=== PATIENT | female | born 1995 | race Caucasian/White ===

== ENCOUNTER 2017-09-21 10:51 | Emergency (ER) | payer OTHER, SELFPAY | END 2017-09-21 12:10 | disposition home or self-care (01) | LOC: BURERS 10:51 | DX: O99.512 Diseases of the respiratory system complicating pregnancy, second trimester (principal); J06.9 Acute upper respiratory infection, unspecified; O99.332 Smoking (tobacco) complicating pregnancy, second trimester; Z3A.26 26 weeks gestation of pregnancy | CPT/HCPCS: 87804; 99283 ==

== ENCOUNTER 2019-01-09 10:41 | Emergency (ER) | payer OTHER ==
[2019-01-09] MEDS ORDERED: Fluorescein Opthalmic Strip ONE (10:58)
== END 2019-01-09 11:29 | disposition home or self-care (01) ==
LOC: BURERS 10:41
DX: O99.89 Other specified diseases and conditions complicating pregnancy, childbirth and the puerperium (principal); H10.9 Unspecified conjunctivitis; Z87.891 Personal history of nicotine dependence; Z3A.20 20 weeks gestation of pregnancy
CPT/HCPCS: 99283

== ENCOUNTER 2023-06-15 07:16 | Emergency (ER) | payer OTHER ==
[2023-06-15 07:37] LABS: Bilirubin Negative (Negative); Blood, Urine Negative (Negative); Clarity Clear (Clear); Glucose, Urine (Dipstick) Negative (Negative); Ketone, Urine Negative (Negative); Leukocyte Small (Negative); Nitrite Negative (Negative); Protein, Urine (Dipstick) Negative (Neg-Trace); Urobilinogen 0.2 mg/dL (Less than 2)
[2023-06-15 07:45] LABS: Pregnancy Test - Urine (BHCG) Negative (Negative)
[2023-06-15 07:46] LABS: Pregu Control Background? CLEAR/WHITE (CLR/WHITE); Pregu Control Bar Appear? YES (CONTROL BAR); RBC/HPF 0-3 HPF (0-3)
[2023-06-15 07:47] LABS: Bacteria/HPF 1+ HPF (None Seen); CAUTI Indications for Culture Pelvic or flank pain; Squamous Epithelial 0-3 HPF (0-3); Urine Culture Reflex No No
== END 2023-06-15 08:26 | disposition home or self-care (01) ==
LOC: BURERS 07:16
DX: M54.6 Pain in thoracic spine (principal); F17.210 Nicotine dependence, cigarettes, uncomplicated
CPT/HCPCS: 71046; 81001; 81025

== ENCOUNTER 2024-05-19 01:15 | Emergency (ER) | payer OTHER ==
[2024-05-19] MEDS ORDERED: Ibuprofen 800 MG TAB ONE (01:43)
== END 2024-05-19 02:01 | disposition home or self-care (01) ==
LOC: BURERS 01:15
DX: R07.89 Other chest pain (principal); F10.129 Alcohol abuse with intoxication, unspecified; F17.210 Nicotine dependence, cigarettes, uncomplicated
CPT/HCPCS: 93005; 99284

== ENCOUNTER 2024-06-11 21:54 | Emergency (ER) | payer OTHER ==
[2024-06-11] MEDS ORDERED: Acetaminophen 500 MG TAB ONE (22:47)
== END 2024-06-11 23:10 | disposition home or self-care (01) ==
LOC: BURERS 21:54
DX: S62.316A Displaced fracture of base of fifth metacarpal bone, right hand, initial encounter for closed fracture (principal); F17.210 Nicotine dependence, cigarettes, uncomplicated; W22.09XA Striking against other stationary object, initial encounter
CPT/HCPCS: 29125; 99283